=== PATIENT | female | born 1965 | race African-American/Black ===

== ENCOUNTER 2017-03-29 15:11 | Emergency (ER) | payer OTHER ==
--- NOTE | ~2017-03-29 | CR156 ---
[facility] A Service of [facility] RADIOLOGY TEXT RESULTS PATIENT: BAO COHN LOCATION: CFTX : 69 UNIT #: [id number] AGE: [address]: Janet Camacho SEX: F ORDER DR: [id number] [facility] [address] [place], [place] [address] [id number] MR#: [id number] Acc #: [id number] NAME: BAO COHN : 1965 SEX: F STUDY DATE/TIME: 03/29/2017 14:45 UNIT: [facility] ROOM: STUDY DESCRIPTION: CR Humerus Min 2 View Lt Attending Physician: Janet Camacho P.A.-C. Ordering Physician: Janet Camacho P.A.-C. Primary Care Physician: Tim Cui A.P.R.N. MEDICAL IMAGING REPORT This report is preliminary unless electronic signature is present EXAM Left humerus 2 views HISTORY Arm pain after injury from a fall today. FINDINGS 2 views of the left humerus demonstrate normal bone alignment. No fracture or dislocation. Minimal hypertrophic changes in the shoulder and moderate sized posterior olecranon spur. IMPRESSION No acute findings. Dictated by... Jose Zee M.D. THIS IS AN ELECTRONICALLY VERIFIED REPORT Jose Zee M.D. at 03/29/2017 10:58 PM STARR/pete TD: 03/29/2017 17:25 JOB #: [id number] MEDICAL IMAGING REPORT Page 1 of 1 COPY
== END 2017-03-29 15:59 | disposition home or self-care (01) ==
LOC: CFTX 15:11
DX: S43.422A Sprain of left rotator cuff capsule, initial encounter (principal); S46.212A Strain of muscle, fascia and tendon of other parts of biceps, left arm, initial encounter; I10 Essential (primary) hypertension; E11.9 Type 2 diabetes mellitus without complications; K21.9 Gastro-esophageal reflux disease without esophagitis; F17.210 Nicotine dependence, cigarettes, uncomplicated; W01.0XXA Fall on same level from slipping, tripping and stumbling without subsequent striking against object, initial encounter; Y92.009 Unspecified place in unspecified non-institutional (private) residence as the place of occurrence of the external cause
CPT/HCPCS: 73060; 96372; 99283; J1885